=== PATIENT | female | born 1965 | race Caucasian/White ===

== ENCOUNTER 2018-12-06 07:10 | Day surgery (SDC) | payer OTHER ==
[~2018-12-06] VITALS: Ht 165.1 cm; Wt 63.5 kg
[2018-12-06 07:47] VITALS: BP 111/73
[2018-12-06 12:34] VITALS: BP 105/69
== END 2018-12-06 11:00 | disposition home or self-care (01) ==
LOC: GI 07:10 → OR 09:00 → GI 09:00
DX: Z12.11 Encounter for screening for malignant neoplasm of colon (principal); K57.30 Diverticulosis of large intestine without perforation or abscess without bleeding; E07.9 Disorder of thyroid, unspecified; Z79.899 Other long term (current) drug therapy; Z98.890 Other specified postprocedural states
CPT/HCPCS: 45378; J1200; J1610; J2250; J2310; J3010; J3490